=== PATIENT | female | born 1950 | race African-American/Black ===

== ENCOUNTER 2024-02-03 11:44 | Inpatient (IN) | payer MEDICARE ==
[2024-02-03 12:33] LABS: Appearance,Urine Clear (Clear); Bilirubin,Urine Negative (Negative); Blood,Urine Negative (Negative); Color,Urine Colorless; Glucose,Urine (UA) Negative (Negative); Ketones,Urine Negative (Negative); Leukocyte Esterase,Urine Negative (Negative); Nitrite,Urine Negative (Negative); PH, Urine 5.5 (5.0-8.0); Protein,Urine Negative (Negative); Specific Gravity,Urine 1.001 (1.001-1.035); Urobilinogen,Urine <2.0 mg/dL (<2.0)
[2024-02-03 12:36] LABS: ALT 21 U/L (4-34); AST 25 U/L (14-36); African American GFR (CKD) >90 (>60 ml/min/1.73 sqM); Albumin 4.2 g/dL (3.5-5.0); Alcohol <10 mg/dL; Alkaline Phosphatase 63 U/L (38-126); Anion Gap 7 mmol/L; Blood Urea Nitrogen 4 mg/dL (7-17); Carbon Dioxide 26 mmol/L (22-30); Chloride 101 mmol/L (98-107); Glucose 114 mg/dL (74-99); Non-African American GFR(CKD) >90 (>60 ml/min/1.73 sqM); Potassium 3.9 mmol/L (3.5-5.1); Sodium 134 mmol/L (137-145); Total Bilirubin 0.7 mg/dL (0.2-1.3); Total Protein 7.6 g/dL (6.3-8.2)
[2024-02-03 12:40] LABS: Amphetamine Screen,Urine Not Detected (NotDetected); Barbiturate Screen,Urine Not Detected (NotDetected); Benzodiazepines Screen,Urine Not Detected (NotDetected); Cocaine Screen,Urine Not Detected (NotDetected); Methadone Screen, Urine Not Detected (NotDetected); Opiate Screen,Urine Not Detected (NotDetected); Oxycodone Screen, Urine Not Detected (NotDetected); Phencyclidine Screen,Urine Not Detected (NotDetected); Tricyclic Antidepressant,Urine Not Detected (NotDetected); Urn Cannabinoid Scrn Not Detected (NotDetected)
--- NOTE | 2024-02-03 12:40 | ED ---
Psych HPI - General Source: patient, family, RN notes reviewed Mode of arrival: wheelchair Limitations: no limitations <Rick Collier - Last Filed: 02/03/24 16:50> <Tiffany Jorgensen - Last Filed: 02/03/24 20:59> - General Chief Complaint: Psychiatric Symptoms Stated Complaint: Mental Health Time Seen by Provider: 02/03/24 11:53 - History of Present Illness Initial Comments: 73-year-old female presents emergency department with daughter for evaluation of psychiatric issues. Patient has a history of bipolar disorder patient does not take her medications as directed. Daughter states that she suffered with this on and off and is having a mental breakdown. She states that is worsened the last couple days. Patient has no physical complaints no chest pain shortness of breath abdominal pain nausea vomit diarrhea constipation no urinary symptoms. Denies drug or alcohol abuse. (Rick Collier) - Related Data Allergies Allergy/AdvReac Type Severity Reaction Status Date / Time codeine Allergy Unknown Verified 02/03/24 11:48 milk Allergy Unknown Verified 02/03/24 11:48 Penicillins Allergy Unknown Verified 02/03/24 11:48 sulfite Allergy Unknown Verified 02/03/24 11:48 wheat Allergy Unknown Verified 02/03/24 11:48 butter Allergy Unknown Uncoded 02/03/24 11:48 Review of Systems ROS Other: All systems not noted in ROS Statement are negative. <Rick Collier - Last Filed: 02/03/24 16:50> ROS Other: All systems not noted in ROS Statement are negative. <Tiffany Jorgensen - Last Filed: 02/03/24 20:59> ROS Statement: Those systems with pertinent positive or pertinent negative responses have been documented in the HPI. Past Medical History Past Medical History: Unable to Obtain Past Surgical History: Unable to Obtain Smoking Status: Never smoker Past Alcohol Use History: None Reported Past Drug Use History: None Reported <Rick Collier - Last Filed: 02/03/24 16:50> General Exam Limitations: no limitations General appearance: alert, in no apparent distress, anxious, other (Patient is hyperverbal) Head exam: Present: atraumatic, normocephalic, normal inspection Eye exam: Present: normal appearance, PERRL, EOMI. Absent: scleral icterus, conjunctival injection, periorbital swelling ENT exam: Present: normal exam, normal oropharynx, mucous membranes moist Neck exam: Present: normal inspection, full ROM. Absent: tenderness, meningismus, lymphadenopathy Respiratory exam: Present: normal lung sounds bilaterally. Absent: respiratory distress, wheezes, rales, rhonchi, stridor Cardiovascular Exam: Present: regular rate, normal rhythm, normal heart sounds. Absent: systolic murmur, diastolic murmur, rubs, gallop, clicks GI/Abdominal exam: Present: soft, normal bowel sounds. Absent: distended, tenderness, guarding, rebound, rigid Neurological exam: Present: alert, oriented X3, CN II-XII intact Psychiatric exam: Present: manic Skin exam: Present: warm, dry, intact, normal color. Absent: rash <Rick Collier - Last Filed: 02/03/24 16:50> Course Vital Signs 02/03/24 11:49 Temperature 97.6 F Pulse Rate 67 Respiratory 20 Rate Blood Pressure 162/82 O2 Sat by Pulse 99 Oximetry Medical Decision Making - Lab Data Result diagrams: 02/03/24 12:12 02/03/24 12:12 <Rick Collier - Last Filed: 02/03/24 16:50> - Lab Data Result diagrams: 02/03/24 12:12 02/03/24 12:12 <Tiffany Jorgensen - Last Filed: 02/03/24 20:59> - Medical Decision Making Was pt. sent in by a medical professional or institution (Dr. PA, CLINICAL BIOSTATISTICS DIRECTOR, urgent care, hospital, or intermediate...) When possible be specific @ -No Did you speak to anyone other than the patient for history (EMS, parent, family, police, friend...)? What history was obtained from this source @ -Daughter providing significant past medical history and current complaint Did you review nursing and triage notes (agree or disagree)? Why? @ -I reviewed and agree with nursing and triage notes Were old charts reviewed (outside hosp., previous admission, EMS record, old EKG, old radiological studies, urgent care reports/EKG's, intermediate records)? Report findings @ -No old charts were reviewed Differential Diagnosis (chest pain, altered mental status, abdominal pain women, abdominal pain men, vaginal bleeding, weakness, fever, dyspnea, syncope, headache, dizziness, GI bleed, back pain, seizure, CVA, palpatations, mental health, musculoskeletal)? @ -Differential Mental Health Depression, anxiety, bipolar, psychosis, schizophrenia, borderline personality, situational depression, adjustment disorder, behavioral disorder, brain tumor, malingering, substance abuse, encephalopathy, medication reaction, dementia, hypothyroidism, degenerative neurologic disorder, lupus.... This is not meant to be all-inclusive list EKG interpreted by me (3pts min.). @ -None X-rays interpreted by me (1pt min.). @ -None done CT interpreted by me (1pt min.). @ -None done U/S interpreted by me (1pt. min.). @ -None done What testing was considered but not performed or refused? (CT, X-rays, U/S, labs)? Why? @ -None What meds were considered but not given or refused? Why? @ -None Did you discuss the management of the patient with other professionals (professionals i.e. , PA, CLINICAL BIOSTATISTICS DIRECTOR, lab, RT, psych nurse, foster care social worker, sole rounding machine operator, teacher, chief security officer, residential case manager)? Give summary @ -EPS evaluated patient and recommended inpatient psychiatric treatment Was smoking cessation discussed for >3mins.? @ -No Was critical care preformed (if so, how long)? @ -No Were there social determinants of health that impacted care today? How? (Homelessness, low income, unemployed, alcoholism, drug addiction, transportation, low edu. Level, literacy, decrease access to med. care, retirement, rehab)? @ -No Was there de-escalation of care discussed even if they declined (Discuss DNR or withdrawal of care, Hospice)? DNR status @ -No What co-morbidities impacted this encounter? (DM, HTN, Smoking, COPD, CAD, Cancer, CVA, ARF, Chemo, Hep., AIDS, mental health diagnosis, sleep apnea, morbid obesity)? @ -None Was patient admitted / discharged? Hospital course, mention meds given and route, prescriptions, significant lab abnormalities, going to OR and other pertinent info. @ -Patient admitted for psychiatric treatment Undiagnosed new problem with uncertain prognosis? @ -No Drug Therapy requiring intensive monitoring for toxicity (Heparin, Nitro, Insulin, Cardizem)? @ -No Were any procedures done? @ -No Diagnosis/symptom? @ -Manic bipolar Acute, or Chronic, or Acute on Chronic? @ -Acute Uncomplicated (without systemic symptoms) or Complicated (systemic symptoms)? @ -Complicated Side effects of treatment? @ -No Exacerbation, Progression, or Severe Exacerbation? @ -No Poses a threat to life or bodily function? How? (Chest pain, USA, SD, pneumonia, PE, COPD, DKA, ARF, appy, cholecystitis, CVA, Diverticulitis, Homicidal, Suicidal, threat to staff... and all critical care pts) @ -No (Rick Collier) Personally saw and evaluated the patient, patient has history of bipolar she is acutely manic and hyperverbal. I completed the psychiatric certification for this patient. As of the evening of February 02 there were no beds available for placement tonight, if patient does not obtain placement tonight there will be a bed available on our floor in the morning. (Tiffany Jorgensen) - Lab Data Lab Results 02/03/24 02/03/24 02/03/24 Range/Units 12:12 12:12 12:23 WBC 2.9 L (3.8-10.6) k/uL RBC 4.25 (3.80-5.40) m/uL Hgb 13.6 (11.4-16.0) gm/dL Hct 40.7 (34.0-46.0) % MCV 95.7 (80.0-100.0) fL MCH 31.9 (25.0-35.0) pg MCHC 33.4 (31.0-37.0) g/dL RDW 13.8 (11.5-15.5) % Plt Count 331 (150-450) k/uL MPV 6.9 Neutrophils % 42 % Lymphocytes % 39 % Monocytes % 10 % Eosinophils % 4 % Basophils % 1 % Neutrophils # 1.2 L (1.3-7.7) k/uL Lymphocytes # 1.1 (1.0-4.8) k/uL Monocytes # 0.3 (0-1.0) k/uL Eosinophils # 0.1 (0-0.7) k/uL Basophils # 0.0 (0-0.2) k/uL Sodium 134 L (137-145) mmol/L Potassium 3.9 (3.5-5.1) mmol/L Chloride 101 (98-107) mmol/L Carbon Dioxide 26 (22-30) mmol/L Anion Gap 7 mmol/L BUN 4 L (7-17) mg/dL Creatinine 0.60 (0.52-1.04) mg/dL Est GFR (CKD-EPI)AfAm >90 (>60 ml/min/1.73 sqM) Est GFR (CKD-EPI)NonAf >90 (>60 ml/min/1.73 sqM) Glucose 114 H (74-99) mg/dL Calcium 9.0 (8.4-10.2) mg/dL Total Bilirubin 0.7 (0.2-1.3) mg/dL AST 25 (14-36) U/L ALT 21 (4-34) U/L Alkaline Phosphatase 63 (38-126) U/L Total Protein 7.6 (6.3-8.2) g/dL Albumin 4.2 (3.5-5.0) g/dL Urine Color Urine Appearance (Clear) Urine pH (5.0-8.0) Ur Specific [place] (1.001-1.035) Urine Protein (Negative) Urine Glucose (UA) (Negative) Urine Ketones (Negative) Urine Blood (Negative) Urine Nitrite (Negative) Urine Bilirubin (Negative) Urine Urobilinogen (<2.0) mg/dL Ur Leukocyte Esterase (Negative) Urine Opiates Screen Not Detected (NotDetected) Ur Oxycodone Screen Not Detected (NotDetected) Urine Methadone Screen Not Detected (NotDetected) Ur Barbiturates Screen Not Detected (NotDetected) U Tricyclic Antidepress Not Detected (NotDetected) Ur Phencyclidine Scrn Not Detected (NotDetected) Ur Amphetamines Screen Not Detected (NotDetected) U Methamphetamines Scrn Not Detected (NotDetected) U Benzodiazepines Scrn Not Detected (NotDetected) Urine Cocaine Screen Not Detected (NotDetected) U Marijuana (THC) Screen Not Detected (NotDetected) Serum Alcohol <10 mg/dL SARS-CoV-2 (PCR) (Not Detectd) 02/03/24 02/03/24 Range/Units 12:23 14:00 WBC (3.8-10.6) k/uL RBC (3.80-5.40) m/uL Hgb (11.4-16.0) gm/dL Hct (34.0-46.0) % MCV (80.0-100.0) fL MCH (25.0-35.0) pg MCHC (31.0-37.0) g/dL RDW (11.5-15.5) % Plt Count (150-450) k/uL MPV Neutrophils % % Lymphocytes % % Monocytes % % Eosinophils % % Basophils % % Neutrophils # (1.3-7.7) k/uL Lymphocytes # (1.0-4.8) k/uL Monocytes # (0-1.0) k/uL Eosinophils # (0-0.7) k/uL Basophils # (0-0.2) k/uL Sodium (137-145) mmol/L Potassium (3.5-5.1) mmol/L Chloride (98-107) mmol/L Carbon Dioxide (22-30) mmol/L Anion Gap mmol/L BUN (7-17) mg/dL Creatinine (0.52-1.04) mg/dL Est GFR (CKD-EPI)AfAm (>60 ml/min/1.73 sqM) Est GFR (CKD-EPI)NonAf (>60 ml/min/1.73 sqM) Glucose (74-99) mg/dL Calcium (8.4-10.2) mg/dL Total Bilirubin (0.2-1.3) mg/dL AST (14-36) U/L ALT (4-34) U/L Alkaline Phosphatase (38-126) U/L Total Protein (6.3-8.2) g/dL Albumin (3.5-5.0) g/dL Urine Color Colorless Urine Appearance Clear (Clear) Urine pH 5.5 (5.0-8.0) Ur Specific [place] 1.001 (1.001-1.035) Urine Protein Negative (Negative) Urine Glucose (UA) Negative (Negative) Urine Ketones Negative (Negative) Urine Blood Negative (Negative) Urine Nitrite Negative (Negative) Urine Bilirubin Negative (Negative) Urine Urobilinogen <2.0 (<2.0) mg/dL Ur Leukocyte Esterase Negative (Negative) Urine Opiates Screen (NotDetected) Ur Oxycodone Screen (NotDetected) Urine Methadone Screen (NotDetected) Ur Barbiturates Screen (NotDetected) U Tricyclic Antidepress (NotDetected) Ur Phencyclidine Scrn (NotDetected) Ur Amphetamines Screen (NotDetected) U Methamphetamines Scrn (NotDetected) U Benzodiazepines Scrn (NotDetected) Urine Cocaine Screen (NotDetected) U Marijuana (THC) Screen (NotDetected) Serum Alcohol mg/dL SARS-CoV-2 (PCR) Not Detected (Not Detectd) Disposition Time of Disposition: 13:52 <Rick Collier M - Last Filed: 02/03/24 16:50> <Tiffany Jorgensen P - Last Filed: 02/03/24 20:59> Clinical Impression: Bipolar disorder Disposition: TRANSFER TO PSYCH HOSP/UNIT Condition: Fair Referrals: None,Stated [Primary Care Provider] - 1-2 days
[2024-02-03 12:56] LABS: Basophils % (A) 1 %; Eosinophils # (A) 0.1 k/uL (0-0.7); Eosinophils % (A) 4 %; HCT 40.7 % (34.0-46.0); HGB 13.6 gm/dL (11.4-16.0); Lymphocytes # (A) 1.1 k/uL (1.0-4.8); Lymphocytes % (A) 39 %; MCH 31.9 pg (25.0-35.0); MCHC 33.4 g/dL (31.0-37.0); MCV 95.7 fL (80.0-100.0); Mean Platelet Volume 6.9; Monocytes # (A) 0.3 k/uL (0-1.0); Monocytes % (A) 10 %; Neutrophils # (A) 1.2 k/uL (1.3-7.7); Neutrophils % (A) 42 %; Platelet Count 331 k/uL (150-450); RBC 4.25 m/uL (3.80-5.40); RDW 13.8 % (11.5-15.5); WBC 2.9 k/uL (3.8-10.6)
[2024-02-03] MEDS: ZIPRASIDONE 20 MG VIAL IM STA (21:18)
[2024-02-04] MEDS: ACETAMINOPHEN TAB 325 MG TAB PO STA (01:29)
[2024-02-04 03:24] VITALS: RESP 16
[2024-02-04] MEDS ORDERED: ACETAMINOPHEN TAB 325 MG TAB PO PRN (16:47)
[2024-02-04] MEDS ORDERED: haloperidoL 5 MG TAB PO PRN (16:47)
[2024-02-04] MEDS ORDERED: MAG HYDROX/AL HYDROX/SIMETH 355 ML BOTTLE PO PRN (16:47)
[2024-02-04] MEDS ORDERED: LORazepam 1 MG TAB PO PRN (16:47)
[2024-02-04] MEDS ORDERED: LORazepam 2 MG/ML INJ IM PRN (16:47)
[2024-02-04] MEDS ORDERED: MAGNESIUM HYDROXIDE 2,400 MG/30 ML CUP PO PRN (16:47)
[2024-02-04] MEDS ORDERED: HALOPERIDOL LACTATE 5 MG/ML 1 ML VIAL IM PRN (16:47)
[2024-02-04] MEDS: IBUPROFEN 600 MG TAB PO PRN (21:29)
[2024-02-05 07:14] VITALS: BP 138/87; PULSE 71; TEMP 97.3
[2024-02-05 08:14] LABS: ALT 19 U/L (4-34); AST 22 U/L (14-36); Albumin 4.4 g/dL (3.5-5.0); Alkaline Phosphatase 57 U/L (38-126); Bilirubin, Delta 0.1 mg/dL (0.0-0.2); Bilirubin,Unconjugated 0.6 mg/dL (0.0-1.1); Total Bilirubin 0.7 mg/dL (0.2-1.3); Total Protein 8.1 g/dL (6.3-8.2)
--- NOTE | 2024-02-05 10:58 | P.MDCNMH ---
History of Present Illness H&P Date: 02/05/24 Patient is a 73-year-old female with past medical history of bipolar disorder and medication noncompliance, obesity, prediabetes, lymphedema, who presented to the ED with her daughter for evaluation of psychiatric issue, recurrent mental breakdowns, inability to care for self. Patient was admitted to [facility], medicine service was asked to see the patient. Patient denies personal history of heart disease, hypertension, diabetes, high cholesterol. Patient denies chest pain, shortness of breath, abdominal pain, she admits pain constipated at the time and takes prune juice for that, no dysuria. Per RN report, patient was able to ambulate and completed unit tour on 02/03, 02/04 she was once offered a wheelchair and ever since then has been refusing to stand up and has been stating that she is unable to walk. Patient's neurological exam is grossly intact, she has strong lumber scaler, moves all e xtremities equally and symmetrically, no organic reason for her stated inability to ambulate suspected. On physical exam patient appears obese, there is feet and ankle nonpitting edema likely lymphedema with skin induration, mild tenderness to palpation. Pertinent positives and negatives as discussed in HPI, a complete review of systems was performed and all other systems are negative. Patient seen and examined at bedside Vital signs reviewed General: Obese, nontoxic, no distress, appears at stated age Derm: warm, dry Head: atraumatic, normocephalic, symmetric Eyes: EOMI, no lid lag, anicteric sclera, pupils equal round reactive to light ENT: Nose and ears atraumatic Neck: No thyromegaly, supple Mouth: no lip lesion, mucus membranes moist Cardiovascular: S1S2 reg, no murmur, no edema Lungs: clear to auscultation bilateral, no rhonchi, no rales, no wheeze, no accessory muscle use Abdominal: soft, nontender to palpation, no guarding, no appreciable organomegaly Ext: no gross muscle atrophy, muscle strength muscle strength 5 out of 5 in all 4 extremities, no contractures Neuro: CN II-XII grossly intact Psych: Alert, oriented, tearful, inattentive Assessment/Plan: Obesity Lymphedema Prediabetes A1c 6.4 -No additional lab work required Elevated blood pressure readings: Continue to monitor blood press, ure should blood pressure stay persistently at 150s 160s, patient can benefit from GHULAM or ARB's given history of prediabetes Bipolar disorder: Continue treatment at [facility] Thank you for allowing us to participate in the care of this pleasant patient. Do not hesitate to contact us with questions. Someone can be reached from the [facility] hospitalist group all hours of the day at [phone] or via [employer]. Past Medical History Past Medical History: Unable to Obtain Past Surgical History: Unable to Obtain Smoking Status: Never smoker Past Alcohol Use History: None Reported Past Drug Use History: None Reported Medications and Allergies Home Medications Medication Instructions Recorded Confirmed Type Unable To Assess [Unable to Assess] 02/04/24 02/04/24 History Allergies Allergy/AdvReac Type Severity Reaction Status Date / Time codeine Allergy Unknown Verified 02/03/24 11:48 milk Allergy Unknown Verified 02/03/24 11:48 Penicillins Allergy Unknown Verified 02/03/24 11:48 sulfite Allergy Unknown Verified 02/03/24 11:48 wheat Allergy Unknown Verified 02/03/24 11:48 butter Allergy Unknown Uncoded 02/03/24 11:48 Physical Exam Vitals: Vital Signs Temp Pulse Resp BP Pulse Ox 02/05/24 06:42 97.3 F L 71 16 138/87 99 02/04/24 16:46 98.8 F 62 16 178/82 98 Intake and Output 02/04/24 02/05/24 02/05/24 22:59 06:59 14:59 Other: Weight 141.1 kg Cranial Nerve Examination - Cranial Nerves Cranial Nerve I- Olfactory: Intact Cranial Nerve II- Optic: Intact Cranial Nerve III- Oculomotor: Intact Cranial Nerve IV- Trochlear: Intact Cranial Nerve V- Trigeminal: Intact Cranial Nerve - Abducens: Intact Cranial Nerve VII- Facial: Intact Cranial Nerve VIII- Auditory: Intact Cranial Nerve IX- Glossopharyngeal: Intact Cranial Nerve X- Vagus: Intact Cranial Nerve XI- Accessory: Intact Cranial Nerve XII- Hypoglossal: Intact Results CBC & Chem 7: 02/03/24 12:12 02/03/24 12:12 Labs: Abnormal Lab Results - Last 24 Hours (Table) 02/05/24 Range/Units 07:18 Hemoglobin A1c 6.4 H (<=6.0) %
[2024-02-05] MEDS ORDERED: OLANZapine 10 MG VIAL IM PRN (11:10)
--- NOTE | 2024-02-05 11:10 | P.HP ---
Psychiatric H&P - . H&P Date: 02/05/24 History & Physical: Allergies Allergy/AdvReac Type Severity Reaction Status Date / Time codeine Allergy Unknown Verified 02/03/24 11:48 milk Allergy Unknown Verified 02/03/24 11:48 Penicillins Allergy Unknown Verified 02/03/24 11:48 sulfite Allergy Unknown Verified 02/03/24 11:48 wheat Allergy Unknown Verified 02/03/24 11:48 butter Allergy Unknown Uncoded 02/03/24 11:48 Vital Signs Temp 97.3 F L 02/05/24 06:42 Pulse 71 02/05/24 06:42 Resp 16 02/05/24 06:42 BP 138/87 02/05/24 06:42 Pulse Ox 99 02/05/24 06:42 FiO2 Intake & Output 02/04/24 02/05/24 02/05/24 18:59 06:59 18:59 Weight 141.1 kg Laboratory Last Values WBC 2.9 k/uL (3.8-10.6) L 02/03/24 12:12 RBC 4.25 m/uL (3.80-5.40) 02/03/24 12:12 Hgb 13.6 gm/dL (11.4-16.0) 02/03/24 12:12 Hct 40.7 % (34.0-46.0) 02/03/24 12:12 MCV 95.7 fL (80.0-100.0) 02/03/24 12:12 MCH 31.9 pg (25.0-35.0) 02/03/24 12:12 MCHC 33.4 g/dL (31.0-37.0) 02/03/24 12:12 RDW 13.8 % (11.5-15.5) 02/03/24 12:12 Plt Count 331 k/uL (150-450) 02/03/24 12:12 MPV 6.9 02/03/24 12:12 Neutrophils % 42 % 02/03/24 12:12 Lymphocytes % 39 % 02/03/24 12:12 Monocytes % 10 % 02/03/24 12:12 Eosinophils % 4 % 02/03/24 12:12 Basophils % 1 % 02/03/24 12:12 Neutrophils # 1.2 k/uL (1.3-7.7) L 02/03/24 12:12 Lymphocytes # 1.1 k/uL (1.0-4.8) 02/03/24 12:12 Monocytes # 0.3 k/uL (0-1.0) 02/03/24 12:12 Eosinophils # 0.1 k/uL (0-0.7) 02/03/24 12:12 Basophils # 0.0 k/uL (0-0.2) 02/03/24 12:12 Sodium 134 mmol/L (137-145) L 02/03/24 12:12 Potassium 3.9 mmol/L (3.5-5.1) 02/03/24 12:12 Chloride 101 mmol/L (98-107) 02/03/24 12:12 Carbon Dioxide 26 mmol/L (22-30) 02/03/24 12:12 Anion Gap 7 mmol/L 02/03/24 12:12 BUN 4 mg/dL (7-17) L 02/03/24 12:12 Creatinine 0.60 mg/dL (0.52-1.04) 02/03/24 12:12 Est GFR (CKD-EPI)AfAm >90 (>60 ml/min/1.73 sqM) 02/03/24 12:12 Est GFR (CKD-EPI)NonAf >90 (>60 ml/min/1.73 sqM) 02/03/24 12:12 Glucose 114 mg/dL (74-99) H 02/03/24 12:[address] Glu mg/dL 137 mg/dL 02/05/24 07:18 Hemoglobin A1c 6.4 % (<=6.0) H 02/05/24 07:18 Calcium 9.0 mg/dL (8.4-10.2) 02/03/24 12:12 Total Bilirubin 0.7 mg/dL (0.2-1.3) 02/05/24 07:18 Conjugated Bilirubin 0.0 mg/dL (0.0-0.3) 02/05/24 07:18 Unconjugated Bilirubin 0.6 mg/dL (0.0-1.1) 02/05/24 07:18 Delta Bilirubin 0.1 mg/dL (0.0-0.2) 02/05/24 07:18 AST 22 U/L (14-36) 02/05/24 07:18 ALT 19 U/L (4-34) 02/05/24 07:18 Alkaline Phosphatase 57 U/L (38-126) 02/05/24 07:18 Total Protein 8.1 g/dL (6.3-8.2) 02/05/24 07:18 Albumin 4.4 g/dL (3.5-5.0) 02/05/24 07:18 TSH 2.590 mIU/L (0.465-4.680) 02/05/24 07:18 Urine Color Colorless 02/03/24 12:23 Urine Appearance Clear (Clear) 02/03/24 12:23 Urine pH 5.5 (5.0-8.0) 02/03/24 12:23 Ur Specific [place] 1.001 (1.001-1.035) 02/03/24 12:23 Urine Protein Negative (Negative) 02/03/24 12:23 Urine Glucose (UA) Negative (Negative) 02/03/24 12:23 Urine Ketones Negative (Negative) 02/03/24 12:23 Urine Blood Negative (Negative) 02/03/24 12:23 Urine Nitrite Negative (Negative) 02/03/24 12:23 Urine Bilirubin Negative (Negative) 02/03/24 12:23 Urine Urobilinogen <2.0 mg/dL (<2.0) 02/03/24 12:23 Ur Leukocyte Esterase Negative (Negative) 02/03/24 12:23 Urine Opiates Screen Not Detected (NotDetected) 02/03/24 12:23 Ur Oxycodone Screen Not Detected (NotDetected) 02/03/24 12:23 Urine Methadone Screen Not Detected (NotDetected) 02/03/24 12:23 Ur Barbiturates Screen Not Detected (NotDetected) 02/03/24 12:23 U Tricyclic Antidepress Not Detected (NotDetected) 02/03/24 12:23 Ur Phencyclidine Scrn Not Detected (NotDetected) 02/03/24 12:23 Ur Amphetamines Screen Not Detected (NotDetected) 02/03/24 12:23 U Methamphetamines Scrn Not Detected (NotDetected) 02/03/24 12:23 U Benzodiazepines Scrn Not Detected (NotDetected) 02/03/24 12:23 Urine Cocaine Screen Not Detected (NotDetected) 02/03/24 12:23 U Marijuana (THC) Screen Not Detected (NotDetected) 02/03/24 12:23 Serum Alcohol <10 mg/dL 02/03/24 12:12 SARS-CoV-2 (PCR) Not Detected (Not Detectd) 02/03/24 14:00 02/05/24 11:04 IDENTIFYING DATA: Patient is a 73-year-old -[place] female, who currently lives with her daughter HPI: Patient presented to the hospital for mental health concerns. Patient was seen by EPS nurse, was petitioned stating that "Ruby presents as hyperverbal manic religiously preoccupied and noncompliant with medications". Patient apparently has a history of bipolar disorder, she apparently recently moved from [place] to live with her daughter. Patient was seen today in her room by news writer. Patient was heard outside of her room rambling, illogical, religiously preoccupied and having loose associations. She was a poor historian, she spoke about talking to God and covered her mouth afterwards as she thought that God was listening. She was not able to answer many questions, not directable during conversation, pressured speech. Disorganized thoughts. Unwilling to follow commands, very poor insight and judgment. Patient denies any suicidal or h omicidal ideations intent or plan. At this time patient denies any auditory or visual hallucinations. Racing thoughts, unable to describe further about her sleep or appetite. Patient admits to using no recreational drugs, urine drug screen was negative. Urine analysis was negative. PAST PSYCHIATRIC HISTORY: Patient has a history of bipolar apparently. Unable to gather further psychiatric history due to patient's mental status PMH: as per ER note ALLERGIES: as per EMR CHEMICAL DEPENDENCY HISTORY: as per HPI FAMILY PSYCHIATRIC/SUBSTANCE USE HISTORY: Unable to gather SOCIAL HISTORY: Patient apparently lives with her daughter, recently moved from [place]. Unable to give further social history due to mental status MENTAL STATUS EXAM: General Appearance: Patient appears to be obese, wearing a hospital gown, stated age is alert, difficult to redirect, uncooperative. Patient appears to have poor hygiene and grooming. Behavior: Patient is seated, not directable, rambling Speech: Patient's speech is pressured Mood/Affect: Patient reports their mood is "not good", affect is congruent and labile affect Suicidality/Homicidality: Patient denies having any homicidal ideation intent or plan. Denies any suicidal ideations intent or plan Perceptions: Patient denies any visual hallucinations and denies any auditory hallucinations Though content/process: Multiple loosely formed delusions, illogical, loose associations, racing thoughts, flight of ideas, religiously preoccupied Memory and concentration: AOX to her name only, grossly impaired concentration. Cannot spell "WORLD" backwards Judgment and insight: Poor STRENGTHS/WEAKNESSES: strength is that patient is resilient. Weakness is that patient has poor judgment and is impulsive INTELLECT: Average IMPRESSIONS: Bipolar disorder currently manic episode with psychotic features PLAN: -Patient is admitted under involuntary status to MHU for stabilization of psychiatric symptoms and safety. Patient has not signed adult voluntary form and medication consent and is placed in patient's chart. A second certification was completed and along with petition will be filed for court. -Medications : Abilify 5 mg daily for mood stabilization/psychosis. Trazodone 50 mg nightly as needed for sleep -Zyprexa PRN for agitation/aggression -Patient was informed of the risks, benefits and side effects of the medication and patient did not understand -Internal Medicine consult to perform medical evaluation and physical. -NRT -not needed as patient does not smoke -SW on board for discharge planning. Encourage patient to participate in groups to work on coping skills. Will await deferral and court date.
[2024-02-05] MEDS ORDERED: traZODone HCL 50 MG TAB PO PRN (11:11)
[2024-02-05] MEDS: ARIPiprazole 5 MG TAB PO SCH (11:41)
[2024-02-05 15:03] LABS: Chol/HDL Ratio 2.72 Ratio; LDL Cholesterol,Calculated 117.6 mg/dL (0.0-131.0); VLDL Calculation 15.28 mg/dL (5.00-40.00)
[2024-02-06] MEDS: OLANZapine 5 MG TAB PO PRN (10:37)
--- NOTE | 2024-02-06 11:13 | P.DS ---
Providers Date of admission: 02/04/24 16:44 Expected date of discharge: 02/06/24 Attending physician: Solo Conteh MD Consults: 02/04/24 16:47 Consult Physician Routine Consulting Provider: Moe Physician Consult Reason/Comments: Medical H&P Do you want consulting provider notified?: Yes Primary care physician: Stated None - Discharge Diagnosis(es) (1) Bipolar disorder, current episode manic severe with psychotic features Current Visit: Yes Status: Acute Priority: High Hospital Course: Admission HPI: Admission note was completed by justowriter operator" Patient is a 73-year-old - [place] female, who currently lives with her daughter. Patient presented to the hospital for mental health concerns. Patient was seen by EPS nurse, was petitioned stating that "Ruby presents as hyperverbal manic religiously preoccupied and noncompliant with medications". Patient apparently has a history of bipolar disorder, she apparently recently moved from [place] to live with her daughter. Patient was seen today in her room by justowriter operator. Patient was heard outside of her room rambling, illogical, religiously preoccupied and having loose associations. She was a poor historian, she spoke about talking to God and covered her mouth afterwards as she thought that God was listening. She was not able to answer many questions, not directable during conversation, pressured speech. Disorganized thoughts. Unwilling to follow commands, very poor insight and judgment. Patient denies any suicidal or homicidal ideations intent or plan. At this time patient denies any auditory or visual hallucinations. Racing thoughts, unable to describe further about her sleep or appetite. Patient admits to using no recreational drugs, urine drug screen was negative. Urine analysis was negative." Hospital course: Upon admission to the unit patient was admitted involuntarily on a petition and certificate and a second certificate was completed and faxed to the courts. Patient was fairly isolative, bizarre psychotic and impulsive. Patient was compliant with the medications. Patient was started on Abilify p.o. 5 mg daily for mood stabilization/psychosis, trazodone 50 mg nightly as needed for sleep, Zyprexa as needed for agitation/aggression. Due to patients weight and poor ambulation and poor ability for self care and also age she will be transferred to [facility] facility. On the day of discharge patient denied any suicidal or homicidal ideations intent or plan denied any auditory or visual hallucinations. Patient will transferred via ambulance today direct hospital to hospital transfer Mental status exam: General Appearance: Patient appears to be obese, discheveled appearance stated age is alert, attempts to be cooperative. Patient is in no acute distress and has improved hygiene and grooming Behavior: Patient is calmly seated without any agitated behavior. bizarre and repsonding to internal stimuli Speech: Patient's speech is fluent and nonpressured. ramling, flight of ideas Mood/Affect: Patient reports their mood is "better", affect is congruent and euthymic. Suicidality/Homicidality: Patient denies having any suicidal or homicidal ideation intent or plan. Perceptions: Patient denies any auditory or visual hallucinations. Though content/process: There is no evidence of any delusional thought content and thought process rambling, flight of ideas Memory and concentration: AOX3, grossly intact for the purposes of this session. Can spell "WORLD" backwards correctly. Judgment and insight: Poor, however has improved with guarded prognosis Impression: Bipolar disorder, current episode severe kayden with psychotic features Plan: -Continue with discharge today as patient will be a hospital to hospital transfer, she will be going to a [facility] as patients needs are not able to be met in this current facility. -Continue medications: Can continue with current medications Abilify 5 mg daily for mood stabilization/psychosis, trazodone 50 mg nightly as needed for sleep, Zyprexa as needed for agitation/aggression. -Patient was counseled on the need for medication compliance and appropriate follow-up at mental health and also primary care for medical issues -Social work and nursing team to help coordinate patient's transfer/discharge today, he will be going to a geriatric psychiatry facility in [place], she will require transportation. -Patient was instructed to return to the hospital or seek immediate medical care if their psychiatric or medical symptoms do worsen or reoccur. Allergies Allergy/AdvReac Type Severity Reaction Status Date / Time codeine Allergy Unknown Verified 02/03/24 11:48 milk Allergy Unknown Verified 02/03/24 11:48 Penicillins Allergy Unknown Verified 02/03/24 11:48 sulfite Allergy Unknown Verified 02/03/24 11:48 wheat Allergy Unknown Verified 02/03/24 11:48 butter Allergy Unknown Uncoded 02/03/24 11:48 Laboratory Results WBC 2.9 k/uL (3.8-10.6) L 02/03/24 12:12 RBC 4.25 m/uL (3.80-5.40) 02/03/24 12:12 Hgb 13.6 gm/dL (11.4-16.0) 02/03/24 12:12 Hct 40.7 % (34.0-46.0) 02/03/24 12:12 MCV 95.7 fL (80.0-100.0) 02/03/24 12:12 MCH 31.9 pg (25.0-35.0) 02/03/24 12:12 MCHC 33.4 g/dL (31.0-37.0) 02/03/24 12:12 RDW 13.8 % (11.5-15.5) 02/03/24 12:12 Plt Count 331 k/uL (150-450) 02/03/24 12:12 MPV 6.9 02/03/24 12:12 Neutrophils % 42 % 02/03/24 12:12 Lymphocytes % 39 % 02/03/24 12:12 Monocytes % 10 % 02/03/24 12:12 Eosinophils % 4 % 02/03/24 12:12 Basophils % 1 % 02/03/24 12:12 Neutrophils # 1.2 k/uL (1.3-7.7) L 02/03/24 12:12 Lymphocytes # 1.1 k/uL (1.0-4.8) 02/03/24 12:12 Monocytes # 0.3 k/uL (0-1.0) 02/03/24 12:12 Eosinophils # 0.1 k/uL (0-0.7) 02/03/24 12:12 Basophils # 0.0 k/uL (0-0.2) 02/03/24 12:12 Sodium 134 mmol/L (137-145) L 02/03/24 12:12 Potassium 3.9 mmol/L (3.5-5.1) 02/03/24 12:12 Chloride 101 mmol/L (98-107) 02/03/24 12:12 Carbon Dioxide 26 mmol/L (22-30) 02/03/24 12:12 Anion Gap 7 mmol/L 02/03/24 12:12 BUN 4 mg/dL (7-17) L 02/03/24 12:12 Creatinine 0.60 mg/dL (0.52-1.04) 02/03/24 12:12 Est GFR (CKD-EPI)AfAm >90 (>60 ml/min/1.73 sqM) 02/03/24 12:12 Est GFR (CKD-EPI)NonAf >90 (>60 ml/min/1.73 sqM) 02/03/24 12:12 Glucose 114 mg/dL (74-99) H 02/03/24 12:[address] Glu mg/dL 137 mg/dL 02/05/24 07:18 Hemoglobin A1c 6.4 % (<=6.0) H 02/05/24 07:18 Calcium 9.0 mg/dL (8.4-10.2) 02/03/24 12:12 Total Bilirubin 0.7 mg/dL (0.2-1.3) 02/05/24 07:18 Conjugated Bilirubin 0.0 mg/dL (0.0-0.3) 02/05/24 07:18 Unconjugated Bilirubin 0.6 mg/dL (0.0-1.1) 02/05/24 07:18 Delta Bilirubin 0.1 mg/dL (0.0-0.2) 02/05/24 07:18 AST 22 U/L (14-36) 02/05/24 07:18 ALT 19 U/L (4-34) 02/05/24 07:18 Alkaline Phosphatase 57 U/L (38-126) 02/05/24 07:18 Total Protein 8.1 g/dL (6.3-8.2) 02/05/24 07:18 Albumin 4.4 g/dL (3.5-5.0) 02/05/24 07:18 Triglycerides 76.40 mg/dL (0.00-149.00) 02/05/24 07:18 Cholesterol 210.00 mg/dL (0.00-200.00) H 02/05/24 07:18 LDL Cholesterol, Calc 117.6 mg/dL (0.0-131.0) 02/05/24 07:18 VLDL Cholesterol, Calc 15.28 mg/dL (5.00-40.00) 02/05/24 07:18 HDL Cholesterol 77.10 mg/dL (40.00-60.00) H 02/05/24 07:18 Cholesterol/HDL Ratio 2.72 Ratio 02/05/24 07:18 TSH 2.590 mIU/L (0.465-4.680) 02/05/24 07:18 Urine Color Colorless 02/03/24 12:23 Urine Appearance Clear (Clear) 02/03/24 12:23 Urine pH 5.5 (5.0-8.0) 02/03/24 12:23 Ur Specific [place] 1.001 (1.001-1.035) 02/03/24 12:23 Urine Protein Negative (Negative) 02/03/24 12:23 Urine Glucose (UA) Negative (Negative) 02/03/24 12:23 Urine Ketones Negative (Negative) 02/03/24 12:23 Urine Blood Negative (Negative) 02/03/24 12:23 Urine Nitrite Negative (Negative) 02/03/24 12:23 Urine Bilirubin Negative (Negative) 02/03/24 12:23 Urine Urobilinogen <2.0 mg/dL (<2.0) 02/03/24 12:23 Ur Leukocyte Esterase Negative (Negative) 02/03/24 12:23 Urine Opiates Screen Not Detected (NotDetected) 02/03/24 12:23 Ur Oxycodone Screen Not Detected (NotDetected) 02/03/24 12:23 Urine Methadone Screen Not Detected (NotDetected) 02/03/24 12:23 Ur Barbiturates Screen Not Detected (NotDetected) 02/03/24 12:23 U Tricyclic Antidepress Not Detected (NotDetected) 02/03/24 12:23 Ur Phencyclidine Scrn Not Detected (NotDetected) 02/03/24 12:23 Ur Amphetamines Screen Not Detected (NotDetected) 02/03/24 12:23 U Methamphetamines Scrn Not Detected (NotDetected) 02/03/24 12:23 U Benzodiazepines Scrn Not Detected (NotDetected) 02/03/24 12:23 Urine Cocaine Screen Not Detected (NotDetected) 02/03/24 12:23 U Marijuana (THC) Screen Not Detected (NotDetected) 02/03/24 12:23 Serum Alcohol <10 mg/dL 02/03/24 12:12 SARS-CoV-2 (PCR) Not Detected (Not Detectd) 02/05/24 19:54 Vital Signs Temp 97.3 F L 02/05/24 06:42 Pulse 71 02/05/24 06:42 Resp 16 02/05/24 06:42 BP 138/87 02/05/24 06:42 Pulse Ox 99 02/05/24 06:42 FiO2 Patient Condition at Discharge: Stable Plan - Discharge Summary Discharge Rx Participant: Yes New Discharge Prescriptions: New traZODone HCL [Desyrel] 50 mg PO HS PRN tab PRN Reason: Insomnia ARIPiprazole [Abilify] 5 mg PO DAILY tab Ibuprofen [Motrin] 600 mg PO Q6HR PRN tab PRN Reason: Moderate Pain (Scale 4 To 6) Acetaminophen Tab [Tylenol] 650 mg PO Q4HR PRN tab PRN Reason: Mild Pain (Scale 1 To 3) OLANZapine [ZyPREXA] 5 mg PO Q6HR PRN tab PRN Reason: Agitation Discharge Medication List ARIPiprazole [Abilify] 5 mg PO DAILY tab 02/06/24 [Rx] Acetaminophen Tab [Tylenol] 650 mg PO Q4HR PRN tab 02/06/24 [Rx] Ibuprofen [Motrin] 600 mg PO Q6HR PRN tab 02/06/24 [Rx] OLANZapine [ZyPREXA] 5 mg PO Q6HR PRN tab 02/06/24 [Rx] traZODone HCL [Desyrel] 50 mg PO HS PRN tab 02/06/24 [Rx] Follow up Appointment(s)/Referral(s): None,Stated [Primary Care Provider] - 1-2 days Activity/Diet/Wound Care/Special Instructions: Avoid the use of street drugs and alcohol. Take all medications as prescribed. When you are in need of refills on your medications, please contact your medical provider and/or outpatient psychiatrist/provider to have this done. Please go to your scheduled outpatient appointment for aftercare treatment. If symptoms return or become worse, call the crisis line at and/or go to the nearest emergency room for evaluation. National Suicide Hotline 983 Discharge Disposition: TRANSFER TO PSYCH HOSP/UNIT
== END 2024-02-06 14:18 | disposition still patient (30) | DRG 885 ==
LOC: EC 11:44 → 3MHU 02-04 16:44
PROVIDERS: ADMIT Psychiatry & Neurology Psychiatry; ATTEND Psychiatry & Neurology Psychiatry
DX: F31.2 Bipolar disorder, current episode manic severe with psychotic features (principal); R45.851 Suicidal ideations; Z68.41 Body mass index [BMI] 40.0-44.9, adult; K21.9 Gastro-esophageal reflux disease without esophagitis; I89.0 Lymphedema, not elsewhere classified; E66.9 Obesity, unspecified; Z88.0 Allergy status to penicillin; Z88.5 Allergy status to narcotic agent; Z91.011 Allergy to milk products; Z91.018 Allergy to other foods; R73.03 Prediabetes; Z79.899 Other long term (current) drug therapy; Z91.148 Patient's other noncompliance with medication regimen for other reason
CPT/HCPCS: 36415; 80053; 80061; 80076; 80306; 80320; 81003; 83036; 84443; 85025; 87635; 99285

== ENCOUNTER 2024-08-07 10:54 | Emergency (ER) | payer MEDICARE ==
[2024-08-07 11:23] VITALS: TEMP 97.6
--- NOTE | 2024-08-07 11:50 | ED ---
ENT HPI - General Stated complaint: Dental pain Time Seen by Provider: 08/07/24 11:50 Source: patient, family (Daughter), RN notes reviewed Mode of arrival: EMS Limitations: no limitations - History of Present Illness Initial comments: 74-year-old female presented to ER via EMS for evaluation of dental pain. Daughter provided majority of HPI. She states patient has been evaluated by [facility] and had x-rays completed this morning indicating patient needed to have 2 teeth on right lower jaw extracted. They state they cannot place complete this at their facility as they do not have the proper equipment to complete this. Daughter reports they have an appointment on August 27 with a dentist for further evaluation. Patient reports extreme pain especially with eating and drinking. Daughter has been using [id number] ibuprofen, Orajel and Tylenol for pain control. She denies any abnormal drainage, tongue or throat swelling. No fevers or chills, difficulty breathing or swallowing. Patient seeking pain control. She denies any other complaints at this time - Related Data Previous Rx's Medication Instructions Recorded ARIPiprazole [Abilify] 5 mg PO DAILY tab 02/06/24 Acetaminophen Tab [Tylenol] 650 mg PO Q4HR PRN tab 02/06/24 Ibuprofen [Motrin] 600 mg PO Q6HR PRN tab 02/06/24 OLANZapine [ZyPREXA] 5 mg PO Q6HR PRN tab 02/06/24 traZODone HCL [Desyrel] 50 mg PO HS PRN tab 02/06/24 Clindamycin [Cleocin] 450 mg PO TID 7 Days #63 capsule 08/07/24 HYDROcodone/APAP 5-325MG [[place] 5] 1 each PO Q6HR PRN #12 tab 08/07/24 Allergies Allergy/AdvReac Type Severity Reaction Status Date / Time codeine Allergy Unknown Verified 08/07/24 11:19 milk Allergy Unknown Verified 08/07/24 11:19 Penicillins Allergy Unknown Verified 08/07/24 11:19 sulfite Allergy Unknown Verified 08/07/24 11:19 wheat Allergy Unknown Verified 08/07/24 11:19 butter Allergy Unknown Uncoded 08/07/24 11:19 Review of Systems ROS Statement: Those systems with pertinent positive or pertinent negative responses have been documented in the HPI. ROS Other: All systems not noted in ROS Statement are negative. Past Medical History Past Medical History: Unable to Obtain History of Any Multi-Drug Resistant Organisms: None Reported Past Surgical History: Unable to Obtain Past Psychological History: Anxiety Smoking Status: Never smoker Past Alcohol Use History: None Reported Past Drug Use History: None Reported General Exam Limitations: no limitations General appearance: alert, in no apparent distress ENT exam: Present: normal exam, normal oropharynx, mucous membranes moist, other (Tenderness right lower jaw. There are 2 missing teeth noted to molars. No erythema, drainage or fluctuance. No tonsillar edema, exudates or uvular deviation. No tongue, lip or oropharynx edema) Neck exam: Present: normal inspection. Absent: tenderness, meningismus, lymphadenopathy Respiratory exam: Present: normal lung sounds bilaterally. Absent: respiratory distress, wheezes, rales, rhonchi, stridor Cardiovascular Exam: Present: regular rate, normal rhythm, normal heart sounds. Absent: systolic murmur, diastolic murmur, rubs, gallop, clicks Neurological exam: Present: alert, oriented X3, CN II-XII intact Skin exam: Present: warm, dry, intact, normal color. Absent: rash Course Vital Signs 08/07/24 08/07/24 11:18 12:49 Temperature 97.6 F Pulse Rate 52 L 58 L Respiratory 20 18 Rate Blood Pressure 183/74 164/81 O2 Sat by Pulse 97 97 Oximetry Medical Decision Making - Medical Decision Making Was pt. sent in by a medical professional or institution (, PA, PATIENT FINANCIAL REP, urgent care, hospital, or fdc...) When possible be specific @ -No Did you speak to anyone other than the patient for history (EMS, parent, family, police, friend...)? What history was obtained from this source @ -Patient's daughter, at bedside, aiding in HPI and past medical history Did you review nursing and triage notes (agree or disagree)? Why? @ -I reviewed and agree with nursing and triage notes Were old charts reviewed (outside hosp., previous admission, EMS record, old EKG, old radiological studies, urgent care reports/EKG's, fdc records)? Report findings @ -No old charts were reviewed Differential Diagnosis (chest pain, altered mental status, abdominal pain women, abdominal pain men, vaginal bleeding, weakness, fever, dyspnea, syncope, headache, dizziness, GI bleed, back pain, seizure, CVA, palpatations, mental health, musculoskeletal)? @ -Dental abscess, fractured tooth, colitis, Tyrell angina.... This list is not meant to be all-inclusive EKG interpreted by me (3pts min.). @ -None X-rays interpreted by me (1pt min.). @ -None done CT interpreted by me (1pt min.). @ -None done U/S interpreted by me (1pt. min.). @ -None done What testing was considered but not performed or refused? (CT, X-rays, U/S, labs)? Why? @ -None What meds were considered but not given or refused? Why? @ -None Did you discuss the management of the patient with other professionals (professionals i.e. , PA, PATIENT FINANCIAL REP, lab, RT, psych nurse, social sciences professor, stained glass glazier helper, te acher, security officer supervisor, case hardener)? Give summary @ -No Was smoking cessation discussed for >3mins.? @ -No Was critical care preformed (if so, how long)? @ -No Were there social determinants of health that impacted care today? How? (Homelessness, low income, unemployed, alcoholism, drug addiction, transportation, low edu. Level, literacy, decrease access to med. care, senior care, rehab)? @ -No Was there de-escalation of care discussed even if they declined (Discuss DNR or withdrawal of care, Hospice)? DNR status @ -No What co-morbidities impacted this encounter? (DM, HTN, Smoking, COPD, CAD, C ancer, CVA, ARF, Chemo, Hep., AIDS, mental health diagnosis, sleep apnea, morbid obesity)? @ -None Was patient admitted / discharged? Hospital course, mention meds given and route, prescriptions, significant lab abnormalities, going to OR and other pertinent info. @ -Discharged. 74 female presenting to the ER via EMS for evaluation of dental pain. Vital signs stable. On my examination patient in no signs of acute distress nontoxic-appearing. There is no drainable abscess on exam. Missing teeth noted to right lower jaw. No oropharynx, tongue, lip or jaw edema. Patient supporting airway. Patient will be started on clindamycin, first dose in the ER, for infection prophylaxis and provided symptomatic control with IM Dilaudid, with improvement. Advised continue use of [id number] ibuprofen and Tylenol for pain control along with Orajel. [place] prescribed for extreme pain. I advised her not to take these while taking Tylenol. Follow-up with dentist as scheduled on August 27, 2024. Patient discharged in stable condition. Patient and patient's daughter verbally expressed understanding and agreed with care plan. Case discussed with ED attending, Dr. Torres. Undiagnosed new problem with uncertain prognosis? @ -No Drug Therapy requiring intensive monitoring for toxicity (Heparin, Nitro, Insulin, Cardizem)? @ -No Were any procedures done? @ -No Diagnosis/symptom? @ -Dental pain Acute, or Chronic, or Acute on Chronic? @ -Acute Uncomplicated (without systemic symptoms) or Complicated (systemic symptoms)? @ -Uncomplicated Side effects of treatment? @ -No Exacerbation, Progression, or Severe Exacerbation? @ -No Poses a threat to life or bodily function? How? (Chest pain, [place], [place], pneumonia, PE, COPD, DKA, ARF, appy, cholecystitis, CVA, Diverticulitis, Homicidal, Suicidal, threat to staff... and all critical care pts) @ -No Disposition Clinical Impression: Dentalgia Disposition: HOME SELF-CARE Condition: Stable Instructions (If sedation given, give patient instructions): Toothache (ED) Additional Instructions: Take clindamycin as prescribed. Follow-up with dentist. Continue taking [id number]-kib-[id number] ibuprofen and Tylenol for pain control. You have been prescribed [place]. Please be advised these may make you drowsy and/or tired. Do not take pjdu-pct-udhrafy Tylenol with [place]. Return to the ER for new worsening concerns. Prescriptions: Clindamycin [Cleocin] 450 mg PO TID 7 Days #63 capsule HYDROcodone/APAP 5-325MG [[place] 5] 1 each PO Q6HR PRN #12 tab PRN Reason: Pain Is patient prescribed a controlled substance at d/c from ED?: Yes When asked, does pt state using other controlled substances?: No If prescribed controlled substance>3 days was MAPS reviewed?: Prescribed <3 Days If opioid is for acute pain is fill amount 7 days or less?: Yes If Rx opioid, was Start Talking consent form obtained?: Yes Referrals: None,Stated [Primary Care Provider] - 1-2 days Carlyn Lopez DDS [STAFF PHYSICIAN] - 1-2 days Rock Oliveira DDS [STAFF PHYSICIAN] - 1-2 days Time of Disposition: 12:40
[2024-08-07] MEDS: CLINDAMYCIN 150 MG CAP PO STA (12:22)
[2024-08-07] MEDS: HYDROmorphone 1 MG/ML 1 ML SYRINGE IM STA (12:23)
[2024-08-07 12:52] VITALS: BP 164/81; PULSE 58; RESP 18
== END 2024-08-07 12:51 | disposition home or self-care (01) ==
LOC: EC 10:54
DX: K08.89 Other specified disorders of teeth and supporting structures (principal); Z88.0 Allergy status to penicillin; Z88.5 Allergy status to narcotic agent; Z91.011 Allergy to milk products; Z91.018 Allergy to other foods; Z88.8 Allergy status to other drugs, medicaments and biological substances
CPT/HCPCS: 99283; 96372; J1171